=== PATIENT | female | born 1945 | race Caucasian/White ===

== ENCOUNTER → 2018-01-05 | Outpatient (CLI) | payer MEDICARE, OTHER ==
[~2018-01-05] MED LIST: ACCUNEB SO1.25 MG/1 INH; AZITHROMYCIN 2250 MG PO; CARVEDILOL12.5 MG PO; COZAAR 50 MG TA50 M1 PO; HYDROCHLOROTHIA25 M2 PO; LASIX 20 MG TAB20 MG PO; LASIX 40 MG TAB40 M2 PO; MEDROLDOSEPACK PO; METFORMIN HCL500 MG PO; PRAVACHOL20 MG PO; TOPROL XL100 MG PO
== END ==
LOC: M.RAD 09:44
DX: M54.9 Dorsalgia, unspecified (principal); M25.551 Pain in right hip; M25.552 Pain in left hip; I73.9 Peripheral vascular disease, unspecified

== ENCOUNTER → 2018-01-07 | Outpatient (CLI) | payer MEDICARE, OTHER | LOC: M.MRI 16:33 | DX: M25.551 Pain in right hip (principal); M54.5 Low back pain ==

== ENCOUNTER → 2018-01-22 | Outpatient (CLI) | payer MEDICARE, OTHER | LOC: M.MRI 15:45 | DX: M47.896 Other spondylosis, lumbar region (principal) ==

== ENCOUNTER 2018-06-14 16:58 | Inpatient (IN) | payer MEDICARE, OTHER ==
[~2018-06-14] VITALS: Ht 167.6 cm; Wt 120.2 kg
[2018-06-14 17:00] VITALS: BP 148/90
[2018-06-14] MEDS ORDERED: METFORMIN HCL500 MG PO (17:05)
[2018-06-14] MEDS ORDERED: HYDROCHLOROTHIA25 M2 PO (17:05)
[2018-06-14] MEDS ORDERED: COZAAR 50 MG TA50 M1 PO (17:05)
[2018-06-14] MEDS ORDERED: MEDROLDOSEPACK PO (17:06)
[2018-06-14] MEDS ORDERED: ACCUNEB SO1.25 MG/1 INH (17:06)
--- NOTE | 2018-06-14 17:53 | NUR ---
PT REQUESTED A MASK FOR HER O2 INSTEAD OF NC. THIS EAR PULL MACHINE OPERATOR EXPLAINED TO PT THAT DURING VITALS PT'S OXYGEN LEVEL WAS 97% AND THAT A MASK WOULD BE TOO MUCH O2 AT THIS TIME. PT STATED THAT THE NC BOTHERED HER NOSE. THIS RN TOLD HER SHE WAS WELCOME TO REMOVE IT
[2018-06-14 18:33] LABS: HEMATOCRIT 34.5 % (37.0-47.0); HEMOGLOBIN 10.9 gm/dL (12.0-15.0); MCH 22.5 pg (26.0-34.0); MCHC 31.6 g/dL (28.0-37.0); MCV 71.4 fL (80.0-100.0); MPV 7.4 fl. (7.2-11.1); NUCLEATED RBCS 0 /100WBC; PLATELET COUNT* 318 thou/uL (150-400); RBC 4.84 mil/uL (4.20-5.00); RDW-CV 18.5 % (10.5-14.5); WBC 13.2 thou/uL (4.0-11.0)
[2018-06-14 18:43] LABS: ANION GAP 7 mmol/L (7-16); BUN 21 mg/dL (7-18); CALCIUM 9.2 mg/dL (8.5-10.1); CHLORIDE 95 mmol/L (98-107); CO2 29 mmol/L (21-32); CREATININE 1.1 mg/dL (0.6-1.3); GLUCOSE 157 mg/dL (70-99); POTASSIUM 4.5 mmol/L (3.5-5.1); SODIUM 131 mmol/L (136-145)
[2018-06-14 18:59] LABS: ALBUMIN 3.1 g/dL (3.4-5.0); ALKALINE PHOSPHATASE 81 U/L (46-116); NT-PRO BRAIN NAT PEPTIDE 5831 pg/mL (<300); SGOT 13 U/L (15-37); SGPT 26 U/L (30-65); TOTAL BILIRUBIN 0.3 mg/dL (<0.1-1.0); TOTAL PROTEIN 7.3 g/dL (6.4-8.2); TROPONIN-I LEVEL <0.06 ng/mL (<0.06)
[2018-06-14 19:00] LABS: APTT 25.4 Seconds (25.0-31.3); PROTIME 10.4 Seconds (9.20-11.50)
[2018-06-14 19:27] LABS: ABSOLUTE LYMPHOCYTES 1.8 thou/uL (0.8-5.3); ABSOLUTE MONOCYTES 0.3 thou/uL (0.0-1.2); ABSOLUTE NEUTROPHILS 11.1 thou/uL (1.6-8.1); ANISOCYTOSIS 1+; HYPOCHROMASIA 1+
[2018-06-14 19:28] LABS: MICROCYTES 2+; PLATELET ESTIMATE ADEQUATE
[2018-06-14 20:12] LABS: URINE BILIRUBIN NEGATIVE (Negative); URINE BLOOD TRACE (Negative); URINE CLARITY CLEAR; URINE COLOR YELLOW; URINE GLUCOSE-RANDOM NEGATIVE (Negative); URINE KETONES NEGATIVE (Negative); URINE LEUKOCYTES-REFLEX NEGATIVE (Negative); URINE NITRITE-REFLEX NEGATIVE (Negative); URINE PROTEIN 1+ (Negative); URINE UROBILINOGEN 0.2 E.U./dl (0.2-1.0)
[2018-06-14 20:30] LABS: CASTS None Seen /LPF (None Seen); MUCUS None Seen strn/LPF (None Seen); SQUAMOUS 4-10 Moderate /LPF (0-3); URINE RBC 0-2 Rare /HPF (0-2); URINE WBC-REFLEX 0-5 Rare /HPF (0-5)
--- NOTE | 2018-06-14 20:30 | NUR ---
BEDSIDE COMMODE PLACED IN ROOM TO ACCOMIDATE PT
[2018-06-14 20:31] LABS: BACTERIA-REFLEX 1-9 Few /HPF (None Seen); CRYSTALS None Seen /LPF (None Seen)
[2018-06-14 22:00] VITALS: BP 120/76
--- NOTE | 2018-06-14 22:00 | NUR ---
REPORT TO TONYA
[2018-06-14 22:15] VITALS: BP 123/71
[2018-06-14] MEDS ORDERED: TOPROL XL100 MG PO (22:37)
[2018-06-14] MEDS ORDERED: PRAVACHOL20 MG PO (22:37)
[2018-06-15] VITALS: BP 136/77
[2018-06-15 04:00] VITALS: BP 126/67
--- NOTE | 2018-06-15 04:33 | NUR ---
PATIENT RECEIVED FROM ER AT 2215 WITH C/O SHORTNESS OF AIR AND LOWER EXTREMITY SWELLING. PATIENT ON 2L O2 NC WITH SATS >92%. SUTURE GAUGER TRACING ST. PATIENT DENIES CHEST PAIN AND DISCOMFORT, BUT DID HAVE C/O HEADACHE RELIEVED WITH ONE DOSE OF TYLENOL AND QUIET/DARK ENVIRONMENT. PATIENT INSTRUCTED TO CALL FOR ASSISTANCE WITH BATHROOM, PATIENT HAS PERSONAL CANE AT BEDSIDE. GOAL IS TO RELIEVE SHORTNESS OF AIR AND SWELLING. CALL LIGHT WITHIN REACH
[2018-06-15 09:00] VITALS: BP 147/86
--- NOTE | 2018-06-15 10:47 | NUR ---
ASSUMED PT CARE AT 0700 PT IS ALERT AND ORIENTED X 4 PT DENIES PAIN C/O SOA APPLIED 2L/NC WHICH HELPED PT, DAUGHTER ASKED ABOUT BREATHING TREATMENTS THIS NURSE PAGED PHYSICIAN WHO ORDERED SCHEDULED BREATHING TREATMENTS, PT IS ST ON THE MONITOR PHYSICIAN ORDERED LASIX IV WHICH THIS NURSE GAVE, PT IS UP WITH SBA PT IS A FALL RISK PT USES CANE BED ALARM IS ON, CARDIOLOGY SAW PT ORDERED DIET, WILL CONTINUE TO MONITOR
--- NOTE | 2018-06-15 11:07 | NUR ---
Nutrition: Pt seen for consult - "other." Pt in with new CHF. H/o DM, HTN. 2gm Na diet ordered. Pt denied any questions. She had some complaints about ER (which RD will report Cipher), but no nutrition concerns or questions at [facility]. Mely did enter room during our visit; RD left to let Dr visit with pt. Pt does have BMI >40. No other nutrition interventions at this time. Please consult of nutrition education is warranted before discharge. Low risk.
[2018-06-15 12:00] VITALS: BP 170/84
[2018-06-15 12:04] LABS: CALCIUM 8.9 mg/dL (8.5-10.1); CREATININE 1.2 mg/dL (0.6-1.3); POTASSIUM 4.2 mmol/L (3.5-5.1)
--- NOTE | 2018-06-15 13:03 | EKG ---
[place] [address] ELECTROCARDIOGRAM REPORT Name: SYLVAIN CHILDRESS Room: [address] ADM IN M.R.#: [id number] Admission: 06/14/18 Attend Phys: Solo Seaman Discharge: Date of : 49 Report #: [id number] THIS REPORT FOR: //name// [facility] ED Test Date: 2018-06-14 Test Time: 18:09:57 Pat Name: SYLVAIN CHILDRESS Department: Room: [address] Gender: F Physician Executive: BARBARA : 1945 Requested By: Dianna Harrington Order Number: [id number] Katarina MD: Manuel Blood Measurements Intervals [place] Rate: 111 P: 90 OH: 196 QRS: -33 QRSD: 98 T: 87 QT: 325 QTc: 442 Interpretive Statements Sinus tachycardia Probable left atrial enlargement Inferior infarct, old Anterior infarct, old Lateral leads are also involved Baseline wander in lead(s) V4,V5 Compared to ECG 04/14/2007 16:02:18 Myocardial infarct finding now present Sinus rhythm no longer present First degree AV block no longer present Electronically Signed On 06-15-2018 13:03:27 CDT by Manuel Blood [email or web address] <ELECTRONICALLY SIGNED> By: Manuel Blood MD, [facility] 06/15/18 1303 08 180 Manuel Blood MD, [facility] /EPI
--- NOTE | 2018-06-15 15:12 | NUR ---
Pt is A&O. Resides at home with her . Normally active and independent. Pt has a cane that she uses for mobility. No hx of HH or SNF. Supportive family that is involved in POC. Goal is to return home at dc, no needs anticipated. Following.
--- NOTE | 2018-06-15 15:16 | 2DMMODE ---
[place] [address] 2 D/M-MODE ECHOCARDIOGRAM Name: SYLVAIN CHILDRESS Room: [address] IN [facility]#: [id number] Admission: 06/14/18 Attend Phys: Dianna Harrington Discharge: Date of : 49 Date of Service: 06/15/18 1515 Report #: [id number] THIS REPORT FOR: //name// APPROVED REPORT Study performed: 06/15/2018 13:30:31 EXAM: Comprehensive 2D, Doppler, and color-flow Echocardiogram Patient Location: In-Patient Room #: [facility] Status: routine BSA: 2.25 HR: 104 bpm BP: 170/84 mmHg Rhythm: NSR Other Information Study Quality: Good Indications Dyspnea 2D Dimensions IVSd: 11.53 (7-11mm) LVOT Diam: 21.88 (18-24mm) LVDd: 48.87 mm PWd: 11.25 (7-11mm) Ascending Ao: 27.94 (22-36mm) LVDs: 37.80 (25-40mm) Aortic Root: 32.72 mm Volumes Left Atrial Volume (Systole) LA ESV Index: 28.50 mL/m2 Aortic Valve AoV Peak Blaise.: 1.78 m/s AO Peak Gr.: 12.65 mmHg LVOT Max P.02 mmHg AO Mean Gr.: 7.93 mmHg LVOT Mean P.22 mmHg LVOT Max V: 1.00 m/s AO V2 VTI: 27.58 cm LVOT Mean V: 0.70 m/s RACHID (VTI): 2.16 cm2 LVOT V1 VTI: 15.87 cm TDI Lateral E' Blaise.: 0.06 m/[place] [address] 2 D/M-MODE ECHOCARDIOGRAM Name: SYLVAIN CIHLDRESS Room: [address] IN M.R.#: [id number] Admission: 06/14/18 Attend Phys: Dianna Harrington Discharge: Date of : 49 Date of Service: 06/15/18 1515 Report #: [id number] PV Peak Blaise.: 1.08 m/s PV Peak Gr.: 4.71 mmHg Left Ventricle Left ventricle is borderline dilated. There is global hypokinesis of the left ventricle. There is normal left ventricular wall thickness. Left ventricular systolic function is normal. The left ventricular ejection fraction is within the normal range. LVEF is 40%. The left ventricular diastolic function is normal. Right Ventricle The right ventricle is normal size. The right ventricular systolic function is normal. Atria The left atrium size is normal. The right atrium size is normal. Aortic Valve The aortic valve is normal in structure. Aortic valve is not well visualized. No aortic regurgitation is present. There is no aortic valvular stenosis. Mitral Valve The mitral valve is normal in structure. Trace mitral regurgitation. No evidence of mitral valve stenosis. Tricuspid Valve The tricuspid valve is normal in structure. There is no tricuspid valve regurgitation noted. Pulmonic Valve The pulmonary valve is normal in structure. There is no pulmonic valvular regurgitation. Great Vessels The aortic root is normal in size. IVC is normal in size and collapses >50% with inspiration. Pericardium There is no pericardial effusion. <Conclusion> LVEF is 40%. Left ventricle is borderline dilated. There is global hypokinesis of the left ventricle. There is no aortic [place] [address] 2 D/M-MODE ECHOCARDIOGRAM Name: SYLVAIN CHILDRESS Room: [address] IN .R.#: [id number] Admission: 06/14/18 Attend Phys: Dianna Harrington Discharge: Date of : 49 Date of Service: 06/15/18 1515 Report #: [id number] No aortic regurgitation is present. Trace mitral regurgitation. <ELECTRONICALLY SIGNED> By: Manuel Blood MD, FACC 06/15/18 1515 1515 1515 Manuel Blood MD, FACC /INF
[2018-06-15 16:05] VITALS: BP 171/76
[2018-06-15 20:00] VITALS: BP 104/63
[2018-06-16] VITALS (11 sets, daily range): BP systolic 101–138; BP diastolic 49–93
--- NOTE | 2018-06-16 05:01 | NUR ---
ASSUMED CARE OF PT AFTER REPORT AT 1930. PT A&OX4. VSS. PHYSICAL ASSESSMENT COMPLTED AND CHARTED. PT ON O2 AT 2L WITH 96% O2 SAT. PT TRACING ST/SR PVC ON TELE. PT UP STANDBY ASSIST TO TOILET. PT C/O OF HEADACHE WITH PAIN SCALE OF 8/10-PAIN MEDS GIVEN PER MAR WITH PARTIAL RELIEF.REMINDED PT REGARDING 2L FLUID RESTRICTION. INSTRUCTED ON NPO POST MIDNIGHT FOR CARDIAC CATH TODAY. COMMUNICATES UNDERSTANDING. HOURLY ROUNDING OBSERVED. CALL LIGHT WITHIN REACH. BED IN LOW POSITION.
[2018-06-16 05:10] LABS: HEMATOCRIT 34.5 % (37.0-47.0); HEMOGLOBIN 10.7 gm/dL (12.0-15.0); MCH 22.9 pg (26.0-34.0); MCV 73.9 fL (80.0-100.0); MPV 7.9 fl. (7.2-11.1); RBC 4.67 mil/uL (4.20-5.00); RDW-CV 18.5 % (10.5-14.5); WBC 12.2 thou/uL (4.0-11.0)
[2018-06-16 05:46] LABS: CALCIUM 8.6 mg/dL (8.5-10.1); CREATININE 1.3 mg/dL (0.6-1.3); MAGNESIUM 1.9 mg/dL (1.8-2.4); POTASSIUM 4.1 mmol/L (3.5-5.1)
--- NOTE | 2018-06-16 13:14 | NUR ---
ASSUMED PT CARE AT 0700 PT IS ALERT AND ORIENTED X 4 PT STATES HAS BACK PAIN THAT IS CHRONIC PT HAD SURGERY ON BACK AND SHOULDER, PT IS UP AD SAVANA PT IS NOT A FALL RISK, PT RECEIVED BOLUS OF FLUIDS AND VALIUM SCHEDULED, PT CAN HAVE ICE CHIPS PER CARDIOLOGY PT IS NPO AWAITING CARDIAC CATH PROCEDURE, PT IS ST PVC ON THE MONITOR, AROUND NOON TECH NOTIFIED THIS NURSE PT BLOOD PRESSURE IS LOW THIS NURSE RECHECKED AND PT BLOOD PRESSURE IS APPROPRIATE FOR PT, PT STARTED NEW MEDICATION CARVEDILOL THIS AM PT IS TOLERATING, WILL CONTINUE TO MONITOR
[2018-06-17] VITALS: BP 111/71
[2018-06-17 04:00] VITALS: BP 100/58
[2018-06-17 04:51] LABS: HEMATOCRIT 34.5 % (37.0-47.0); HEMOGLOBIN 10.5 gm/dL (12.0-15.0); MCH 22.3 pg (26.0-34.0); MCHC 30.5 g/dL (28.0-37.0); MCV 73.1 fL (80.0-100.0); MPV 7.8 fl. (7.2-11.1); RBC 4.73 mil/uL (4.20-5.00); RDW-CV 18.2 % (10.5-14.5); WBC 11.3 thou/uL (4.0-11.0)
[2018-06-17 04:57] LABS: CALCIUM 9.1 mg/dL (8.5-10.1); CREATININE 1.2 mg/dL (0.6-1.3); POTASSIUM 4.2 mmol/L (3.5-5.1)
[2018-06-17 04:58] LABS: MAGNESIUM 2.2 mg/dL (1.8-2.4)
--- NOTE | 2018-06-17 05:46 | NUR ---
ASSUMED CARE OF PT AFTER REPORT AT 1930. PT A&OX4. VSS. PHYSICAL ASSESSMENT COMPLETED AND CHARTED. PT ON RA WITH 92% O2 SAT. PT TRACING SR 1ST DEG/PVC ON TELE. PT UP STANDBY ASSIST TO TOILET. PT COMPLAINED OF HEADACHE WITH PAIN SCALE OF 8/10-PAIN MEDS GIVEN PER MAR WITH PARTIAL RELIEF. RADIAL ARTERY COMPRESSION DEVICE REMOVED AT 2100 AFTER RELEASING 2 MLS OF AIR Q30.COVERED WITH BANDAID.NO HEMATOMA PRESENT.PULSES ADEQUATE. HOURLY ROUNDING OBSERVED. CALL LIGHT WITHIN REACH.
[2018-06-17 09:00] VITALS: BP 154/56
[2018-06-17] MEDS ORDERED: LASIX 20 MG TAB20 MG PO (10:05)
[2018-06-17] MEDS ORDERED: CARVEDILOL12.5 MG PO (10:05)
[2018-06-17] MEDS ORDERED: AZITHROMYCIN 2250 MG PO (10:05)
--- NOTE | 2018-06-17 10:17 | NUR ---
ASSSUMED PT CARE AT 0700 PT IS ALERT AND ORIENTED X 4 PT DENIES PAIN OR SOA ON RA, PT IS UP AD SAVANA PT IS CLEARED BY CARDIOLOGY FOR DISCHARGE, HOSPITALIST CLEARED PT FOR DISCHARGE, PT HAS APPOINTMENT WITHIN 7 DAYS FOR FOLLOW UP AND PT IS ON BETA JAYLA PER PROTOCOL, PT IS SR PVC ON THE MONITOR, WILL CONTINUE TO MONITOR
[2018-06-17] MEDS ORDERED: LASIX 40 MG TAB40 M2 PO (11:14)
[2018-06-17 12:02] VITALS: BP 193/59
--- NOTE | 2018-06-17 18:06 | CARD ---
[address] [address] CARDIAC CATH REPORT Name: SYLVAIN CHILDERSS Room: [address] IN ..#: [id number] Admission: 06/14/18 Attend Phys: Solo Seaman Discharge: 06/17/18 Date of : 49 Report #: [id number] THIS REPORT FOR: //name// APPROVED REPORT Study performed: 06/16/2018 14:31:35 Patient Details Patient Status: In-Patient Room #: 214 The patient is a 73 year-old female Event Personnel Renard Parra Bus Boy, Tonya Apodaca RN Cardiology Specialist, Laurie Beverly Monitor, Eliseo Zaragoza Scrub Procedures Performed Art Access - R radial artery , Left Heart Catheterization, Selective Right and Left Coronary Angiography Indication Chest pain Risk Factors Hypertension Procedure Narrative The patient was brought electively to the Cardiac Catheterization Laboratory and was prepped and draped in a sterile manner. The right wrist was infiltrated with 2% Lidocaine subcutaneous anesthesia. A Slender Glidesheath sheath was inserted into the right radial artery. Coronary angiography was performed using coronary diagnostic catheters. The right coronary system was accessed and visualized with a 6fr JR 4 catheter. The left coronary system was accessed and visualized with a 6fr JL 4 catheter. The left ventricle was accessed and visualized with a 6fr Ang Pigtail catheter. Left ventricular/Aortic Valve gradient assessed via catheter pullback. The patient tolerated the procedure well and there were no complications associated with the procedure. Intraoperative Conscious Sedation Sedation start time: 15:11 Case end Time: 15:45 Fentanyl 25 mcg Fluoro Time: 6.9 [place] [address] CARDIAC CATH REPORT Name: SYLVAIN CHILDRESS Room: [address]#: [id number] Admission: 06/14/18 Attend Phys: Solo Seaman Discharge: 06/17/18 Date of : 49 Report #: [id number] Dose: DAP 89902 cGycm2 1088.80 mGy Contrast Type and Amount: Visipaque 100 ml Diagnostic Cath Left Main 0% narrowing LAD 50% mid LAD narrowing Circumflex 60% narrowing of the midportion of the posterior division with 50% mid first marginal narrowing Right Coronary Dominant vessel with 40% mid vessel narrowing Left Ventriculography Left Ventriculography was not performed. Hemodynamics The aortic pressure is 126/59 mmHg with a mean of mmHg. The left ventricular pressure is 140/8 mmHg with a mean of mmHg. The left ventricular end diastolic pressure is 14 mmHg. There was no gradient across the aortic valve upon pullback. Conclusion #1 moderate coronary artery disease characterized by the following: A 50% mid LAD narrowing B 50% narrowing of the midportion of the first marginal branch of the circumflex with 60% mid circumflex narrowing in the posterior division C 40% narrowing of the midportion of the dominant right coronary artery #2 mild elevation of left ventricular end-diastolic pressure at rest Recommendations Medical Therapy Diagnostic Cath Approved by: Renard Parra MD Date/Time: 06/17/2018 18:05:04 <ELECTRONICALLY SIGNED> By: Renard Parra MD, [facility] 06/17/18 180 04 04Renard Parra MD, [facility] /INF
--- NOTE | 2018-07-03 12:09 | CON ---
[address] [address] CONSULTATION Name: SYLVAIN CHILDRESS Room: [address] IN M.R.#: [id number] Admission: 06/14/18 Attend Phys: Solo Seaman Discharge: 06/17/18 Date of : 49 Report #: [id number] THIS REPORT FOR: //name// CC: Dianna Jenkins DATE OF SERVICE: 06/15/2018 PRIMARY CARE PHYSICIAN: Jacques Jenkins DO CHIEF COMPLAINT: Shortness of breath. HISTORY OF PRESENT ILLNESS: The patient is a 73-year-old female who presented to the emergency department with increasing shortness of breath over the last several days, perhaps 2 weeks. She has been having increasing leg swelling. Her chest x-ray revealed bilateral pleural effusions and her BNP was greater than 5000. She denies chest pain or pressure, the shortness of breath has occurred with physical activity and it is associated with nighttime orthopnea and PND. She has no documented history of heart disease; however, her ECG demonstrates Q-waves across the anterior precordial leads. She has a longstanding history of smoking and she thought maybe her shortness of breath was attributed to this. She also has high blood pressure, but this had been stable on medical therapy. She was evaluated with a CT scan of the chest with contrast overnight to rule out pulmonary embolus, which was negative. However, there was some interstitial prominence and a calcified granuloma in the right mid lung. PAST MEDICAL HISTORY: Significant for the following, she has a longstanding history of high blood pressure. She has no documented history of heart disease. She is a former smoker. She smoked for over 20 years. She is diabetic, type 2. PAST SURGICAL HISTORY: She has no prior recent surgeries. She had a hip surgery previously. ALLERGIES: To CODEINE. SOCIAL HISTORY: She is . HOME MEDICATIONS: Include Pravachol 20 mg daily, metoprolol succinate 100 mg p.o. b.i.d., metformin 1000 mg p.o. b.i.d., HCTZ 25 mg losartan 50 mg daily [place] [address] CONSULTATION Name: SYLVAIN CHILDRESS Room: [address]#: [id number] Admission: 06/14/18 Attend Phys: Solo Seaman Discharge: 06/17/18 Date of : 49 Report #: [id number] REVIEW OF SYSTEMS: GASTROINTESTINAL: No nausea or vomiting. Positive abdominal bloating with no constipation, no diarrhea, no hematemesis or melena. MUSCULOSKELETAL: Positive bilateral lower extremity edema, left slightly greater than right. CARDIOVASCULAR: No chest pain. Positive dyspnea with exertion, positive orthopnea, positive PND, no palpitations. NEUROLOGIC: No history of slurred speech, numbness, weakness or visual changes. ENDOCRINE: Positive diabetes. RENAL: No history of kidney failure. ALLERGIES: As noted above. PHYSICAL EXAMINATION: VITAL SIGNS: Blood pressure is 126/67, pulse is 104 and in a sinus rhythm, blood pressure is 126/67. GENERAL: This is a pleasant elderly female. She is sitting up in a chair. She is on oxygen 2 liters, but conversant and comfortable talking. HEENT: There is no facial asymmetry. NECK: Supple. No jugular venous distention. Carotids upstrokes are normal. CARDIOVASCULAR: Regular, sinus tachycardia. There is faint S3. There is faint systolic apical murmur. LUNGS: Diminished breath sounds with basilar rales. ABDOMEN: Soft, nontender, nondistended. There is 1-2+ pretibial edema bilateral. NEUROLOGIC: There are no focal deficits. Electrocardiogram shows a sinus rhythm with Q-waves across the anterior precordial leads V1 through V4. Delayed R-wave progression, there are also Q-waves in 3 and aVF and a mild IVCD. LAB DATA: Her hemoglobin is 10.9, white blood cell count is 13.2, platelet count is 318,000. Sodium is 131, potassium is 4.5, chloride is 95, BUN is 21, creatinine is 1.1, and glucose 212. Troponin I is 0.06. BNP is 5831. IMPRESSION: 1. Acute systolic congestive heart failure. She has been given IV Lasix with some improvement of her symptoms. Her chest x-ray did not show any consolidating infiltrates, so it appears to be more related to congestive heart failure, especially given in light of her elevated BNP level and clinical presentation with edema and weight gain. 2. Coronary artery disease. Her ECG is concerning for coronary artery disease and her symptoms could be account maintenance representative of an unstable angina type etiology, so after discussing risks and benefits, I think it is not safe to proceed with a stress test in this particular patient, I would recommend direct evaluation with a cardiac catheterization, the risks and benefits of this approach were [address] [place] [address] CONSULTATION Name: SYLVAIN CHILDRESS Room: [address] IN M.R.#: [id number] Admission: 06/14/18 Attend Phys: Solo Seaman Discharge: 06/17/18 Date of : 49 Report #: [id number] described to the patient in lay terms. The patient elects to proceed. 3. Hypertension. We will continue with her current medical therapy including beta chikis and ARB. 4. Hyperlipidemia. Continue with atorvastatin. We will check her lipids and treat accordingly. 5. Elevated white blood cell count. She has been on steroids as an outpatient, I suspect this may be part of the elevation in her white blood cell count. <ELECTRONICALLY SIGNED> By: Manuel Blood MD, FACC 07/03/18 1209 1054 1314Manuel Blood MD, FACC /nt
== END 2018-06-17 11:50 | disposition home or self-care (01) | DRG 286 ==
LOC: M.ERS 16:58 → M.2W 21:14 → M.TBA-ER 21:14 → M.2W 22:02
PROVIDERS: Internal Medicine; Internal Medicine Cardiovascular Disease; Nurse Practitioner Family; ADMIT Internal Medicine
PROC: 4A023N7 Measurement of Cardiac Sampling and Pressure, Left Heart, Percutaneous Approach (ICD-10-PCS; principal; 2018-06-16)
PROC: B2111ZZ Fluoroscopy of Multiple Coronary Arteries using Low Osmolar Contrast (ICD-10-PCS; 2018-06-16)
DX: I11.0 Hypertensive heart disease with heart failure (principal); J18.9 Pneumonia, unspecified organism; Z68.41 Body mass index [BMI] 40.0-44.9, adult; J84.89 Other specified interstitial pulmonary diseases; Z96.1 Presence of intraocular lens; E11.9 Type 2 diabetes mellitus without complications; E66.01 Morbid (severe) obesity due to excess calories; J06.9 Acute upper respiratory infection, unspecified; N28.1 Cyst of kidney, acquired; I50.41 Acute combined systolic (congestive) and diastolic (congestive) heart failure; E78.5 Hyperlipidemia, unspecified; Z88.8 Allergy status to other drugs, medicaments and biological substances; Z79.899 Other long term (current) drug therapy; Z90.710 Acquired absence of both cervix and uterus; Z98.42 Cataract extraction status, left eye; Z98.41 Cataract extraction status, right eye; Z87.891 Personal history of nicotine dependence

== ENCOUNTER 2018-12-27 11:27 | Inpatient (IN) | payer MEDICARE, OTHER ==
[~2018-12-27] VITALS: Ht 167.6 cm; Wt 119.7 kg
--- NOTE | ~2018-12-27 | CON ---
[address] [address] CONSULTATION Name: SYLVAIN CHILDRESS Room: [address] IN .R.#: [id number] Admission: 12/27/18 Attend Phys: Mariah Van MD Discharge: Date of : 49 Report #: [id number] THIS REPORT FOR: //name// CC: Jacques Jenkins DO Mariah Van DICTATED BY: Nalini Hanks [facility] DATE OF SERVICE: 12/28/2018 Please note at the time of this dictation, the patient was seen and physically examined by myself. REASON FOR CONSULTATION: Acute anemia and melenic stool. HISTORY OF PRESENT ILLNESS: This is a 73-year-old female who originally went to her doctor's office yesterday for having some increased shortness of air; however, she denied any fever, cough, chest pain, abdominal pain or any other type of symptoms. The patient states she had been noticing worsening of this and when they went to check her oxygen level, it was difficult to get, so they did a stat hemoglobin on her and told her that it was 5.8 and she needed to go to the Emergency Room. The patient states that approximately four months ago, she noticed some dark stools once in a while, but was not concerned; however, over the course of the time period, she states that the stools have become darker more frequent on a daily basis and multiples in one day that is very tarry or pasty in consistency. The patient states she does have a history of a gastric ulcer many years ago. The patient has had EGD and colonoscopy done at [facility]. Last colon was about 3 years ago and last EGD was 15-20 years ago and that is when she was told that she had a gastric ulcer. She does not take anything for acid reflux or no PPIs at this time. She denies any acid reflux and she denies taking any NSAIDs as well. ALLERGIES: CODEINE AND HYDROCODONE. MEDICATIONS: From home include metformin, pravastatin, Lasix, albuterol and Cozaar. PAST MEDICAL HISTORY: Morbid obesity, congestive heart failure, noninsulin dependent diabetic and hypertension. PAST SURGICAL HISTORY: Bilateral cataracts, hysterectomy, carpal tunnel, foot surgery, rotator cuff, left and right knee arthroscopic surgery. FAMILY HISTORY: Maternal side breast cancer [place] [address] CONSULTATION Name: SYLVAIN CHILDRESS Room: [address]#: [id number] Admission: 12/27/18 Attend Phys: Mariah Van MD Discharge: Date of : 49 Report #: [id number] SOCIAL HISTORY: Denies any tobacco, alcohol or illegal drug use. REVIEW OF SYSTEMS: Twelve-point review of systems is essentially negative except what is mentioned in the HPI. PHYSICAL EXAMINATION: VITAL SIGNS: Temperature 36.6, pulse 94, respirations 16, blood pressure 145/36. HEART: Regular rate and rhythm. LUNGS: Clear. ABDOMEN: Soft, positive bowel sounds in all four quadrants with some slight epigastric tenderness noted to palpation. LABORATORY DATA: Hemoglobin on arrival was 6.8. She has gotten two units of blood. She went up to 8.8 and down to 7.8, white count is 11.8, MCV is 64, platelets are 440. PT is 10 and INR is 1.1, GFR is 49, BUN is 16, creatinine is 1.1. IMPRESSION: 1. Gastrointestinal bleed. 2. Melenic stool. 3. Epigastric pain. 4. Acute anemia. 5. History of gastric ulcer. 6. Chronic kidney disease. 7. Family history of breast and cervical cancer. PLAN: 1. EGD today with Dr. Hernandez. 2. Continue her Protonix. 3. Obtain her records from [facility]. 4. Further recommendations to be made once the procedure has been performed. Thank you for allowing us to participate in this patient's care. Please do not hesitate to call with any questions in regard to this consult. By: 0830 [id number] Hernandez MD /erin
--- NOTE | ~2018-12-27 | PROC ---
[facility] [address] [place] [address] PROCEDURE REPORT Name: SYLVAIN CHILDRESS Room: [address] IN .R.#: [id number] Admission: 12/27/18 Attend Phys: Mariah Van MD Discharge: 12/29/18 Date of : 49 Report #: [id number] THIS REPORT FOR: //name// For GI report, please see the Provation report in Perceptive 7 content. By: [facility] Records Staff LEMUEL /JEAN MARIE
[2018-12-27 11:33] VITALS: BP 159/61
[2018-12-27 12:13] LABS: BE 2.1 mmol/L (-2 to +3); PCO2 41.4 mmHg (35.0-45.0); pH 7.426 (7.340-7.450)
--- NOTE | 2018-12-27 12:23 | NUR ---
INFUSION CONTACTED FOR IV PLACEMENT
[2018-12-27 12:31] LABS: URINE BILIRUBIN NEGATIVE (Negative); URINE BLOOD TRACE (Negative); URINE CLARITY CLEAR; URINE COLOR YELLOW; URINE GLUCOSE-RANDOM NEGATIVE (Negative); URINE KETONES NEGATIVE (Negative); URINE LEUKOCYTES-REFLEX NEGATIVE (Negative); URINE NITRITE-REFLEX NEGATIVE (Negative); URINE PROTEIN NEGATIVE (Negative); URINE UROBILINOGEN 0.2 E.U./dl (0.2-1.0)
[2018-12-27 12:37] LABS: ABSOLUTE BASOPHILS 0.1 thou/uL (0.0-0.2); ABSOLUTE EOSINOPHILS 0.3 thou/uL (0.0-0.7); ABSOLUTE LYMPHOCYTES 1.5 thou/uL (0.8-5.3); ABSOLUTE MONOCYTES 1.3 thou/uL (0.0-1.2); ABSOLUTE NEUTROPHILS 10.4 thou/uL (1.6-8.1); BASOPHILS 0.5 %; EOSINOPHILS 1.9 %; HEMATOCRIT 23.2 % (37.0-47.0); LYMPHOCYTES 11.2 %; MCH 17.8 pg (26.0-34.0); MCHC 29.4 g/dL (28.0-37.0); MCV 60.6 fL (80.0-100.0); MONOCYTES 9.7 %; MPV 7.2 fl. (7.2-11.1); NUCLEATED RBCS 0 /100WBC; PLATELET COUNT* 527 thou/uL (150-400); POLYS 76.7 %; RBC 3.83 mil/uL (4.20-5.00); RDW-CV 19.8 % (10.5-14.5); WBC 13.6 thou/uL (4.0-11.0)
[2018-12-27 12:38] LABS: HEMOGLOBIN 6.8 gm/dL (12.0-15.0)
--- NOTE | 2018-12-27 12:54 | NUR ---
INFUSION PRESENT FOR IV PLACEMENT
[2018-12-27 12:55] LABS: ANION GAP 9 mmol/L (7-16); BUN 22 mg/dL (7-18); CALCIUM 9.2 mg/dL (8.5-10.1); CHLORIDE 95 mmol/L (98-107); CO2 30 mmol/L (21-32); CREATININE 1.2 mg/dL (0.6-1.3); GLUCOSE 190 mg/dL (70-99); POTASSIUM 4.1 mmol/L (3.5-5.1); SODIUM 134 mmol/L (136-145); TROPONIN-I LEVEL <0.06 ng/mL (<0.06)
[2018-12-27 12:56] LABS: ALBUMIN 2.8 g/dL (3.4-5.0); ALKALINE PHOSPHATASE 109 U/L (46-116); NT-PRO BRAIN NAT PEPTIDE 1486 pg/mL (<300); SGOT 11 U/L (15-37); SGPT 17 U/L (30-65); TOTAL BILIRUBIN 0.2 mg/dL (<0.1-1.0); TOTAL PROTEIN 7.7 g/dL (6.4-8.2)
[2018-12-27 13:10] LABS: HYPOCHROMASIA 2+; PLATELET ESTIMATE INCREASED
[2018-12-27 13:11] LABS: MICROCYTES 2+; POLYCHROMASIA 1+
[2018-12-27 13:12] LABS: TARGET CELLS 1+
[2018-12-27 13:13] LABS: ANISOCYTOSIS 2+; POIKILOCYTOSIS 1+
--- NOTE | 2018-12-27 13:59 | NUR ---
1ST UNIT PRBC TRANSFUSION STARTED ORDERED VIA LT AC IV.
--- NOTE | 2018-12-27 15:40 | NUR ---
PT SAT UP ON EDGE OF BED, BP DROPPED TO 115/27, PROVIDER AWARE. PT STATES NO COMPLAINTS, DENIES DIZZINES. RECHECKED AND 127/41. PT STATES BP HAS BEEN LOW AT HOME SINCE TAKING COREG.
--- NOTE | 2018-12-27 16:59 | NUR ---
PT WAS OFFERED A REGULAR HOSPITAL BED INSTEAD OF E.D. STRETCHER. PT REFUSED. STATES SHE HAS "ALREADY BEEN HERE FOR SIX HOURS WITHOUT A BED, WHAT'S THE USE NOW? NO THANK YOU". AWAITING ROOM ASSIGNMENT FOR ADMISSION.
[2018-12-27 18:32] LABS: % SATURATION 3 % (20-39); IRON 10 ug/dL (50-175)
[2018-12-27 19:52] LABS: HEMATOCRIT 28.5 % (37.0-47.0); HEMOGLOBIN 8.8 gm/dL (12.0-15.0); MCH 19.8 pg (26.0-34.0); MCHC 30.8 g/dL (28.0-37.0); MCV 64.3 fL (80.0-100.0); MPV 7.1 fl. (7.2-11.1); RBC 4.43 mil/uL (4.20-5.00); RDW-CV 23.1 % (10.5-14.5); WBC 14.7 thou/uL (4.0-11.0)
[2018-12-27 21:47] VITALS: BP 170/67
[2018-12-27 22:00] VITALS: BP 167/56
--- NOTE | 2018-12-27 22:00 | NUR ---
RECEIVED REPORT FROM ER AND ADMITTED TO ROOM. NO ACUTE DISTRESS. C/O OF SORE DRY THROAT WITH NASAL CONGESTION STATING THAT IS WHAT SHE CAME IN WITH AND NOW THEY ARE WORKING ON THE OTHER END. TELEMETRY APPLIED SHOWING SR WITH 1ST AVB. SEE ADMISSION HX AND ASSESSMENT. WILL CONT TO MONITOR AND ASSIST NEEDED.
[2018-12-28] VITALS: BP 175/53
[2018-12-28 04:00] VITALS: BP 145/36
[2018-12-28 05:30] LABS: ABSOLUTE BASOPHILS 0.1 thou/uL (0.0-0.2); ABSOLUTE EOSINOPHILS 0.2 thou/uL (0.0-0.7); ABSOLUTE LYMPHOCYTES 2.3 thou/uL (0.8-5.3); ABSOLUTE MONOCYTES 1.2 thou/uL (0.0-1.2); ABSOLUTE NEUTROPHILS 7.8 thou/uL (1.6-8.1); BASOPHILS 0.8 %; EOSINOPHILS 1.4 %; HEMATOCRIT 25.3 % (37.0-47.0); HEMOGLOBIN 7.8 gm/dL (12.0-15.0); LYMPHOCYTES 19.6 %; MCH 19.8 pg (26.0-34.0); MONOCYTES 10.4 %; MPV 7.3 fl. (7.2-11.1); NUCLEATED RBCS 0 /100WBC; PLATELET COUNT* 440 thou/uL (150-400); POLYS 67.8 %; RBC 3.96 mil/uL (4.20-5.00); RDW-CV 23.2 % (10.5-14.5); WBC 11.5 thou/uL (4.0-11.0)
--- NOTE | 2018-12-28 05:35 | NUR ---
AWAKE OCC. SBA TO BR AND BACK WITH STEADY GAIT BUT SLOW DUE TO KNEE PROBLEMS. PT STATED 1 STOOL GREEN AND TARRY BUT I DID NOT OBSERVE IT. IV PAIN MED GIVEN X1 AND EFFECTIVE FOR LOW BACK PAIN. C/O SOA WHEN RETURNING TO BED AFTER AMBULATION, O2 CHECKED FOR 92%, REASSURANCE GIVEN. TELEMETRY SHOWING BIGEMINY TO SR WITH BBB. HS GOALS OF REST AND SAFETY ACHIEVED. HOURLY ROUNDING OBSERVED.
[2018-12-28 05:58] LABS: CALCIUM 9.1 mg/dL (8.5-10.1); CREATININE 1.1 mg/dL (0.6-1.3); MAGNESIUM 1.8 mg/dL (1.8-2.4); POTASSIUM 3.8 mmol/L (3.5-5.1)
[2018-12-28 07:30] VITALS: BP 144/60
--- NOTE | 2018-12-28 10:04 | EKG ---
[place] [address] ELECTROCARDIOGRAM REPORT Name: SYLVAIN CHILDRESS Room: [address] ADM IN .R.#: [id number] Admission: 12/27/18 Attend Phys: Mariah Van MD Discharge: Date of : 49 Report #: [id number] THIS REPORT FOR: //name// [facility] ED Test Date: 2018-12-27 Test Time: 12:14:14 Pat Name: SYLVAIN CHILDRESS Department: Room: [facility] Gender: F Aligning Checker: : 1945 Requested By: Alejandra Diehl Order Number: [id number] MD: Manuel Blood Measurements Intervals [place] Rate: 94 P: 98 WI: 246 QRS: -61 QRSD: 99 T: 94 QT: 360 QTc: 451 Interpretive Statements Sinus rhythm Prolonged WI interval Left anterior fascicular block Anterior infarct, old Nonspecific T abnormalities, lateral leads Compared to ECG 06/14/2018 18:09:57 First degree AV block now present Left anterior fascicular block now present T-wave abnormality now present Sinus tachycardia no longer present Myocardial infarct finding still present Electronically Signed On 12-28-2018 10:04:04 CDT by Manuel Blood [email or web address] <ELECTRONICALLY SIGNED> By: Manuel Blood MD, [facility] 12/28/18 1004 1214 1214 Manuel Blood MD, [facility] /EPI
--- NOTE | 2018-12-28 12:24 | 2DMMODE ---
[place] [address] 2 D/M-MODE ECHOCARDIOGRAM Name: SYLVAIN CHILDRESS Room: [address] IN [facility]#: [id number] Admission: 12/27/18 Attend Phys: Mariah Van MD Discharge: Date of : 49 Date of Service: 12/28/18 1224 Report #: [id number] THIS REPORT FOR: //name// APPROVED REPORT Study performed: 12/28/2018 10:09:23 EXAM: Comprehensive 2D, Doppler, and color-flow Echocardiogram Patient Location: In-Patient Room #: 220 Status: routine BSA: 2.24 HR: 79 bpm BP: 144/60 mmHg Rhythm: NSR Other Information Study Quality: Good Indications Dyspnea 2D Dimensions IVSd: 13.48 (7-11mm) LVOT Diam: 21.34 (18-24mm) LVDd: 47.90 mm PWd: 12.53 (7-11mm) Ascending Ao: 27.66 (22-36mm) LVDs: 25.68 (25-40mm) Volumes Left Atrial Volume (Systole) LA ESV Index: 35.20 mL/m2 Aortic Valve AoV Peak Blaise.: 1.78 m/s AO Peak Gr.: 12.70 mmHg LVOT Max P.79 mmHg AO Mean Gr.: 7.12 mmHg LVOT Mean P.58 mmHg LVOT Max V: 0.97 m/s AO V2 VTI: 37.06 cm LVOT Mean V: 0.56 m/s RACHID (VTI): 1.92 cm2 LVOT V1 VTI: 19.91 cm Mitral Valve E/A Ratio: 0.86 MV Decel. Time: 251.79 ms MV E Max Blaise.: 1.29 m/s MV PHT: 73.02 [place] [address] 2 D/M-MODE ECHOCARDIOGRAM Name: SYLVAIN CHILDRESS Room: [address] IN .R.#: [id number] Admission: 12/27/18 Attend Phys: Mariah Van MD Discharge: Date of : 49 Date of Service: 12/28/18 1224 Report #: [id number] MVA (PHT): 3.01 cm2 TDI E/Lateral E': 8.06 E/Medial E': 10.75 Medial E' Blaise.: 0.12 m/s Lateral E' Blaise.: 0.16 m/s Pulmonary Valve PV Peak Blaise.: 1.29 m/s PV Peak Gr.: 6.62 mmHg Left Ventricle The left ventricle is normal size. There is normal LV segmental wall motion. There is normal left ventricular wall thickness. Left ventricular systolic function is normal. The left ventricular ejection fraction is within the normal range. LVEF is 55-60%. Grade I - abnormal relaxation pattern. Right Ventricle The right ventricle is normal size. The right ventricular systolic function is normal. Atria Left atrium is borderline dilated. The right atrium size is normal. Aortic Valve Aortic valve leaflets are mildly thickened. The aortic valve is not well visualized. No aortic regurgitation is present. Mild aortic stenosis. Mitral Valve The mitral valve is normal in structure. Mild mitral regurgitation. No evidence of mitral valve stenosis. Tricuspid Valve The tricuspid valve is normal in structure. There is no tricuspid valve regurgitation noted. Pulmonic Valve The pulmonary valve is normal in structure. There is no pulmonic valvular regurgitation. Great Vessels The aortic root is normal in size. IVC is normal in size and collapses >50% [place] [address] 2 D/M-MODE ECHOCARDIOGRAM Name: SYLVAIN CHILDRESS Room: [address] IN [facility]#: [id number] Admission: 12/27/18 Attend Phys: Mariah Van MD Discharge: Date of : 49 Date of Service: 12/28/18 1224 Report #: [id number] Pericardium There is no pericardial effusion. <Conclusion> LVEF is 55-60%. There is normal LV segmental wall motion. No aortic regurgitation is present. Mild aortic stenosis. No aortic regurgitation is present. Mild mitral regurgitation. <ELECTRONICALLY SIGNED> By: Manuel Blood MD, FACC 12/28/18 1224 1224 1224 Manuel Blood MD, FAC /INF
--- NOTE | 2018-12-28 15:43 | NUR ---
INITIAL ASSESSMENT: Pt evaluated for d/c planning needs. Reviewed chart and spoke with nurse and pt. Pt is alert and oriented. Pt lives in house with spouse and was independent with ADL's prior to admission to the hospital. Pt remains active in the community and is still driving. Pt uses cane for ambulation. Pt had home health after knee replacement surgery in 2005. Pt plans on returning home on d/c from hospital. Will remain available to assist as needed.
[2018-12-28 16:00] VITALS: BP 164/61
[2018-12-28] MEDS ORDERED: CLARITIN10 MG PO (17:37)
[2018-12-28 20:15] VITALS: BP 105/62
[2018-12-29] VITALS: BP 129/37
[2018-12-29 04:00] VITALS: BP 120/64; BP 142/61
--- NOTE | 2018-12-29 04:58 | NUR ---
PATIENT PROGRESSING TOWARDS GOALS: BACK PAIN PARTIALLY MANAGED WITH REST/RELAXATION AND PAIN MEDICATION. PATIENT TOLERATED IRON INFUSION WELL. HAS C/O SORE THROAT AND DRY MOUTH. PROVIDED WITH ICE CHIPS AND MOUTH MOISTURIZER. DENIES CHEST PAIN, N/V/D, AND SOA. VSS ON ROOM AIR. CALL LIGHT WITHIN REACH
[2018-12-29 05:30] LABS: HEMATOCRIT 27.2 % (37.0-47.0); HEMOGLOBIN 8.3 gm/dL (12.0-15.0); MCH 19.6 pg (26.0-34.0); MCHC 30.3 g/dL (28.0-37.0); MCV 64.8 fL (80.0-100.0); MPV 7.5 fl. (7.2-11.1); RBC 4.2 mil/uL (4.20-5.00); RDW-CV 23.3 % (10.5-14.5); WBC 13.3 thou/uL (4.0-11.0)
[2018-12-29 05:50] LABS: CALCIUM 8.9 mg/dL (8.5-10.1); CREATININE 1.2 mg/dL (0.6-1.3); MAGNESIUM 1.9 mg/dL (1.8-2.4); POTASSIUM 4.5 mmol/L (3.5-5.1)
--- NOTE | 2018-12-29 07:15 | NUR ---
CHANGE OF SHIFT BEDSIDE REPORT GIVEN PATIENT SEEN AT BEDSIDE, IN BED RESTING ASSUMED PATIENT CARE
[2018-12-29 08:00] VITALS: BP 111/41
[2018-12-29] MEDS ORDERED: PROTONIX40 M1 PO (11:39)
[2018-12-29 12:20] VITALS: BP 106/41
--- NOTE | 2018-12-29 13:49 | NUR ---
BILLIARD TABLE REPAIRER SPOKE TO THE PATIENT TO DISCUSS DISCHARGE PLANNING NEEDS AND HHH AT D/C. PATIENT DECLINED HH, AND STATES 'I DON'T KNO WANY REASON THAT I WOULD NEED THAT'. D/C SENIOR PROCUREMENT SPECIALIST INFORMED THE RN IN-CHARGE OF THE PATIENT OF THIS INFO. CM WILL REMAIN AVAILABLE TO ASSIST AND FOLLOW NEEDED.
--- NOTE | 2018-12-29 14:30 | NUR ---
DISCHARGE TO HOME IV AND HEART MONITOR REMOVED PERSONAL BELONGINGS RETURNED DISCHARGE INFORMATION REVIEWED AND ACKNOWLEDGED AND SIGNED COPIES GIVEN PATIENT ASSISTED OUT VIA WC TO WAITING CAR IN GOOD CONDITION
--- NOTE | 2018-12-29 17:07 | PATH ---
[facility] [address] [place] [address] PATHOLOGY RPT PROCEDURE Name: SYLVAIN CHILDRESS Room: [address] IN M.R.#: [id number] Admission: 12/27/18 Date of : 49 Discharge: 12/29/18 Report #: [id number] Path Case #: [id number] [facility] Accession Number: [id number] . 01 Material submitted: . GASTRIC BX . 01 Clinical history: . Rule out H. pylori . 02 Diagnosis: Gastric biopsy: - Mild nonspecific chronic gastritis, negative for Helicobacter pylori organisms and dysplasia. (CRIS:chris; 12/29/2018) . Special stain: H. pylori immuno MBR/12/29/2018 . 02 Electronically signed: . Leroy Garcia MD, Pathologist NPI- [id number] . 01 Gross description: . Received in formalin labeled "Melvin, Sylvain, gastric BX, rule out H. pylori," is a single segment of rizo soft tissue measuring 0.5 cm in maximum dimension. The specimen is entirely submitted in cassette A1. (TSD; 12/28/2018) TOB/TOB . 02 Pathologist provided ICD-10: K29.50 . 02 CPT . 197864, F30440 Specimen Comment: A courtesy copy of this report has been sent to Specimen Comment: [phone], . Specimen Comment: Report sent to / DR CUBA Performed at: [address] [facility], [place], [place] [id number] MD Jacques Rod MD Phone: [phone] Performed at: 02 [facility] [address], [place], [place] [id number] MD Leroy Garcia MD Phone: [phone]
== END 2018-12-29 14:30 | disposition home or self-care (01) | DRG 377 ==
LOC: M.ERS 11:27 → M.2W 14:02 → M.TBA-ER 14:02 → M.2W 23:19
PROVIDERS: Nurse Practitioner Adult Health; Personal Emergency Response Attendant; ADMIT Family Medicine
PROC: 30233N1 Transfusion of Nonautologous Red Blood Cells into Peripheral Vein, Percutaneous Approach (ICD-10-PCS; principal; 2018-12-27)
PROC: 0D598ZZ Destruction of Duodenum, Via Natural or Artificial Opening Endoscopic (ICD-10-PCS; 2018-12-28)
PROC: 0DB68ZX Excision of Stomach, Via Natural or Artificial Opening Endoscopic, Diagnostic (ICD-10-PCS; 2018-12-28)
DX: K55.21 Angiodysplasia of colon with hemorrhage (principal); R65.11 Systemic inflammatory response syndrome (SIRS) of non-infectious origin with acute organ dysfunction; J96.00 Acute respiratory failure, unspecified whether with hypoxia or hypercapnia; I50.22 Chronic systolic (congestive) heart failure; I13.0 Hypertensive heart and chronic kidney disease with heart failure and stage 1 through stage 4 chronic kidney disease, or unspecified chronic kidney disease; Z80.8 Family history of malignant neoplasm of other organs or systems; K25.4 Chronic or unspecified gastric ulcer with hemorrhage; E66.01 Morbid (severe) obesity due to excess calories; Z96.653 Presence of artificial knee joint, bilateral; N18.9 Chronic kidney disease, unspecified; I25.5 Ischemic cardiomyopathy; E11.22 Type 2 diabetes mellitus with diabetic chronic kidney disease; I25.10 Atherosclerotic heart disease of native coronary artery without angina pectoris; D50.9 Iron deficiency anemia, unspecified; J06.9 Acute upper respiratory infection, unspecified; Z90.710 Acquired absence of both cervix and uterus; Z98.42 Cataract extraction status, left eye; Z98.41 Cataract extraction status, right eye; Z88.6 Allergy status to analgesic agent; Z80.3 Family history of malignant neoplasm of breast

== ENCOUNTER → 2019-01-26 | Outpatient (CLI) | payer MEDICARE, OTHER ==
[~2019-01-26] MED LIST changes: +CLARITIN10 MG PO; +PROTONIX40 M1 PO
[2019-01-26 16:36] LABS: ABSOLUTE BASOPHILS 0.1 thou/uL (0.0-0.2); ABSOLUTE EOSINOPHILS 0.1 thou/uL (0.0-0.7); ABSOLUTE LYMPHOCYTES 1.5 thou/uL (0.8-5.3); ABSOLUTE MONOCYTES 0.9 thou/uL (0.0-1.2); ABSOLUTE NEUTROPHILS 8.3 thou/uL (1.6-8.1); BASOPHILS 1.3 %; EOSINOPHILS 0.8 %; HEMATOCRIT 30.8 % (37.0-47.0); HEMOGLOBIN 9.5 gm/dL (12.0-15.0); LYMPHOCYTES 13.8 %; MCH 20.8 pg (26.0-34.0); MCHC 30.9 g/dL (28.0-37.0); MCV 67.2 fL (80.0-100.0); MONOCYTES 8.3 %; MPV 8.8 fl. (7.2-11.1); NUCLEATED RBCS 0 /100WBC; PLATELET COUNT* 317 thou/uL (150-400); POLYS 75.8 %; RBC 4.58 mil/uL (4.20-5.00); WBC 10.9 thou/uL (4.0-11.0)
[2019-01-26 17:03] LABS: ALBUMIN 2.7 g/dL (3.4-5.0); CALCIUM 9.4 mg/dL (8.5-10.1); CREATININE 1.2 mg/dL (0.6-1.3); POTASSIUM 4.4 mmol/L (3.5-5.1); TOTAL BILIRUBIN 0.3 mg/dL (<0.1-1.0); TOTAL PROTEIN 6.9 g/dL (6.4-8.2)
[2019-01-26 20:44] LABS: ANISOCYTOSIS 2+; HYPOCHROMASIA 2+; MICROCYTES 2+
[2019-01-26 20:45] LABS: POLYCHROMASIA 1+; TARGET CELLS 1+
== END ==
LOC: M.LAB 16:21
PROVIDERS: Nurse Practitioner Adult Health
DX: D64.9 Anemia, unspecified (principal); K92.2 Gastrointestinal hemorrhage, unspecified

== ENCOUNTER → 2019-02-28 | Outpatient (CLI) | payer MEDICARE, OTHER ==
[2019-02-28 08:08] LABS: POTASSIUM 4.3 mmol/L (3.5-5.1)
== END ==
LOC: M.LAB 01:18
PROVIDERS: Student in an Organized Health Care Education/Training Program
DX: E11.9 Type 2 diabetes mellitus without complications (principal); E87.6 Hypokalemia

== ENCOUNTER 2019-06-12 17:10 | Inpatient (IN) | payer MEDICARE, OTHER ==
[~2019-06-12] VITALS: Ht 165.1 cm; Wt 105.2 kg
[2019-06-12] VITALS (9 sets, daily range): BP systolic 101–192; BP diastolic 44–137
[2019-06-12] MEDS ORDERED: KLOR-CON M2020 MEQ PO (17:22)
[2019-06-12] MEDS ORDERED: PRAVACHOL40 MG PO (17:22)
[2019-06-12 17:36] LABS: HEMATOCRIT 39.8 % (37.0-47.0); HEMOGLOBIN 12.1 gm/dL (12.0-15.0); MCHC 30.5 g/dL (28.0-37.0); MCV 75.3 fL (80.0-100.0); MPV 7.6 fl. (7.2-11.1); NUCLEATED RBCS 0 /100WBC; PLATELET COUNT* 431 thou/uL (150-400); RBC 5.28 mil/uL (4.20-5.00); RDW-CV 16.4 % (10.5-14.5); WBC 23.4 thou/uL (4.0-11.0)
[2019-06-12 17:48] LABS: APTT 23.8 Seconds (25.0-31.3); PROTIME 10.6 Seconds (9.20-11.50)
[2019-06-12 17:49] LABS: ANION GAP 13 mmol/L (7-16); BUN 21 mg/dL (7-18); CHLORIDE 95 mmol/L (98-107); CO2 23 mmol/L (21-32); CREATININE 1.4 mg/dL (0.6-1.3); GLUCOSE 351 mg/dL (70-99); POTASSIUM 4.7 mmol/L (3.5-5.1); SODIUM 131 mmol/L (136-145)
[2019-06-12 18:00] LABS: ALBUMIN 3.2 g/dL (3.4-5.0); ALKALINE PHOSPHATASE 83 U/L (46-116); NT-PRO BRAIN NAT PEPTIDE 12296 pg/mL (<300); SGOT 31 U/L (15-37); SGPT 29 U/L (30-65); TOTAL BILIRUBIN 0.2 mg/dL (<0.1-1.0); TOTAL PROTEIN 7.2 g/dL (6.4-8.2); TROPONIN-I LEVEL <0.06 ng/mL (<0.06)
[2019-06-12 18:08] LABS: BE -5.1 mmol/L (-2 to +3); PCO2 41.2 mmHg (35.0-45.0); pH 7.319 (7.340-7.450)
[2019-06-12 18:12] LABS: PO2 170.9 mmHg (75.0-100.0)
[2019-06-12 18:18] LABS: ABSOLUTE LYMPHOCYTES 7.5 thou/uL (0.8-5.3); ABSOLUTE MONOCYTES 1.9 thou/uL (0.0-1.2)
[2019-06-12 18:19] LABS: PLATELET ESTIMATE INCREASED
[2019-06-12 18:22] LABS: HYPOCHROMASIA 1+
[2019-06-13] VITALS (30 sets, daily range): BP systolic 112–192; BP diastolic 55–110
[2019-06-13 05:30] LABS: BE -1.3 mmol/L (-2 to +3); PCO2 37.6 mmHg (35.0-45.0); PO2 90.9 mmHg (75.0-100.0); pH 7.405 (7.340-7.450)
--- NOTE | 2019-06-13 06:33 | NUR ---
PT ADMITTED TO ICU AT 1830 FOR RESPIRATORY FAILURE, SEPSIS. PT INTUBATED IN ED WITH 7.5 ET TUBE. PT MAINTAINED O2 SAT > 96% THROUGHOUT SHIFT ON FIO2 30%. PT OPENS EYES TO TOUCH AND VOICE. PT FOLLOWS COMMANDS. PT IN BILATERAL SOFT WRIST RESTRAINTS TO MAINTAIN ET TUBE, GARLAND CATHERTER, CENTRAL LINE AND NG. PT SEDATED ON PROPOFOL DRIP FOR SEDATION. VITAL SIGNS WITHIN NORMAL LIMITS DURING SHIFT, WILL CONTINUE TO MONITOR CLOSELY.
--- NOTE | 2019-06-13 10:00 | NUR ---
PT FOLLOWING COMMANDS. ORAL CARE GIVEN. PT REPOSITIONED. FAMILY AT BEDSIDE. VSS. WILL CONINUE PLAN OF CARE.
--- NOTE | 2019-06-13 10:30 | EKG ---
[place] [address] ELECTROCARDIOGRAM REPORT Name: SYLVAIN CHILDRESS Room: [address] ADM IN M.R.#: [id number] Admission: 06/12/19 Attend Phys: Bianca Sarah Discharge: Date of : 49 Report #: [id number] THIS REPORT FOR: //name// [facility] ED Test Date: 2019-06-12 Test Time: 17:13:36 Pat Name: SYLVAIN CHILDRESS Department: Room: [facility] Gender: F Regional Sales Associate: : 1945 Requested By: Rishabh Soria Order Number: [id number] MD: Jose Antonio Florian Measurements Intervals [place] Rate: 127 P: 236 [place]: 54 QRS: -51 QRSD: 109 T: 84 QT: 380 QTc: 553 Interpretive Statements Sinus or ectopic atrial tachycardia old inferior infarction Anterior infarct, old Prolonged QT interval Compared to ECG 12/27/2018 12:14:14 Prolonged QT interval now present Sinus rhythm no longer present Myocardial infarct finding still present Electronically Signed On 06-13-2019 10:30:27 CDT by Jose Antonio Florian [email or web address] <ELECTRONICALLY SIGNED> By: Jose Antonio Florian MD, [facility] 06/13/19 1030 1713 1713 Jose Antonio Florian MD, [facility] /EPI
--- NOTE | 2019-06-13 10:39 | NUR ---
Nutrition: Per ICU rounds, possible extubation. Will follow POC and make recs as appropriate. Follow up 06/14/19.
--- NOTE | 2019-06-13 12:00 | NUR ---
RECEIVED ORDERS TO DO A T-TUBE TRIAL. IT PT DOES NOT DO WELL TO CONSULT PULMONARY. RT COMMUNICATED T-TUBE RESULTS TO PHYSICAN. PT EXTUBATED AT 1145 AND PLACED ON 3L NC.
--- NOTE | 2019-06-13 16:05 | 2DMMODE ---
[place] [address] 2 D/M-MODE ECHOCARDIOGRAM Name: SYLVAIN CHILDRESS [facility]#: [id number] Admission: 06/12/19 Attend Phys: Kevin Willis Discharge: Date of : 49 Date of Service: 06/13/19 1605 Report #: [id number] THIS REPORT FOR: //name// APPROVED REPORT Study performed: 06/13/2019 12:10:57 EXAM: Comprehensive 2D, Doppler, and color-flow Echocardiogram Patient Location: In-Patient Room #: [facility] Status: routine BSA: 2.09 HR: 94 bpm BP: 182/84 mmHg Rhythm: NSR Other Information Study Quality: Good Indications Congestive Heart Failure 2D Dimensions IVSd: 14.40 (7-11mm) LVOT Diam: 20.99 (18-24mm) LVDd: 57.79 mm PWd: 11.73 (7-11mm) Ascending Ao: 30.61 (22-36mm) LVDs: 47.09 (25-40mm) Aortic Root: 30.89 mm Volumes Left Atrial Volume (Systole) LA ESV Index: 48.20 mL/m2 Aortic Valve AoV Peak Blaise.: 1.45 m/s AO Peak Gr.: 8.38 mmHg LVOT Max P.11 mmHg AO Mean Gr.: 4.90 mmHg LVOT Mean P.43 mmHg LVOT Max V: 0.88 m/s AO V2 VTI: 27.24 cm LVOT Mean V: 0.55 m/s RACHID (VTI): 2.14 cm2 LVOT V1 VTI: 16.82 cm Mitral Valve E/A Ratio: 1.32 MV Decel. Time: 159.40 ms MV E Max Blaise.: 1.48 m/[place] [address] 2 D/M-MODE ECHOCARDIOGRAM Name: SYLVAIN CHILDRESS Room: [address] IN [facility].#: [id number] Admission: 06/12/19 Attend Phys: Kevin Willis Discharge: Date of : 49 Date of Service: 06/13/19 1605 Report #: [id number] MV PHT: 46.23 ms MVA (PHT): 4.76 cm2 TDI E/Lateral E': 13.45 E/Medial E': 14.80 Medial E' Blaise.: 0.10 m/s Lateral E' Blaise.: 0.11 m/s Pulmonary Valve PV Peak Blaise.: 0.96 m/s PV Peak Gr.: 3.71 mmHg Left Ventricle Left ventricle is mildy dilated. There is severe global hypokinesis of the left ventricle. Mild concentric left ventricular hypertrophy. Left ventricular systolic function is moderate to severely decreased. LVEF is 25-30%. Grade IV - fixed restrictive diastolic dysfunction. Right Ventricle The right ventricle is normal size. The right ventricular systolic function is normal. Atria Left atrium is severely dilated. The right atrium size is normal. Aortic Valve The aortic valve is not well visualized. No aortic regurgitation is present. There is no aortic valvular stenosis. Mitral Valve The mitral valve is normal in structure. Mild mitral regurgitation. No evidence of mitral valve stenosis. Tricuspid Valve The tricuspid valve is normal in structure. Unable to assess PA pressure. Trace tricuspid regurgitation. Pulmonic Valve Pulmonic valve is not well visualized. There is no pulmonic valvular regurgitation. Great Vessels The aortic root is normal in size. IVC is normal in size and collapses >50% [place] [address] 2 D/M-MODE ECHOCARDIOGRAM Name: SYLVAIN CHILDRESS Room: [address] IN [facility]#: [id number] Admission: 06/12/19 Attend Phys: Kevin Willis Discharge: Date of : 49 Date of Service: 06/13/19 1605 Report #: [id number] Pericardium There is no pericardial effusion. <Conclusion> LVEF is 25-30%. Left atrium is severely dilated. Mild mitral regurgitation. Mild concentric left ventricular hypertrophy. <ELECTRONICALLY SIGNED> By: Jose Antonio Florian MD, [facility] 06/13/19 1605 1605 1605 Jose Antonio Florian MD, [facility] /INF
--- NOTE | 2019-06-13 17:00 | NUR ---
SW met with pt to complete initial assessment, introduce self, and SW role. Pt alert, oriented, pleasant, sitting edge of bed. Pt lives at home with spouse; pt explained they are normally independent at home. Pt expressed possible need for home oxygen and if needed, pt said that she would need to request small portable carry on shoulder/backpack type due to pt hx of double rotator cuff surgery. Pt might have need for HH services at dc or other support services/resources. SW/CM to continue to follow to assist with safe dc planning.
--- NOTE | 2019-06-13 18:00 | NUR ---
PT TOLERATING 3L NC. BEDSIDE SWALLOW PREFORMED BY RN AND PT PASSED. DR NOTIFIED AND REQUESTED ORDER FOR LIQUID DIET. PT STATES SHE HAS NOT EATEN AND IS HUNGRY. RECEIVED ORDER FOR FULL LIQUID DIET. PT TOLERATING LIQUID DIET. PT SITTING AT SIDE OF BED.
[2019-06-14] VITALS (9 sets, daily range): BP systolic 133–153; BP diastolic 59–113
[2019-06-14 06:14] LABS: CALCIUM 8.6 mg/dL (8.5-10.1); CREATININE 1.1 mg/dL (0.6-1.3); POTASSIUM 4.3 mmol/L (3.5-5.1)
--- NOTE | 2019-06-14 10:15 | NUR ---
ICU rounds: Pt tele status now. Pt advanced diet today, ring out, has central line, IV abx and 2 to 3 L of oxygen. SBA with family.
--- NOTE | 2019-06-14 12:50 | NUR ---
PT. DECLINES O.T. EVAL DUE TO BEING BACK TO BASELINE INDEPENDENT LEVEL. WILL DISCHARGE PT. FROM O.T. [place] AT THIS TIME. PT. WAS IN ROOM EOB AND ON ROOM AIR.
--- NOTE | 2019-06-14 15:16 | NUR ---
PT A&O X4. VSS. O2 SATS >93% IN RA. PT UPTO THE BSC AT STAND BY ASSIST. CENTRAL LINE DSG CHANGED. DENIES PAIN, SOA. TOLERATING DIET. GOOD OUTPUT. REPORT GIVEN TO SALVADOR CHEUNG.
--- NOTE | 2019-06-14 18:13 | NUR ---
PT TRANSFERRED TO ROOM 218 VIA WHEELCHAIR FROM ICU AT APPROXIMATELY 1500. REPORT RECEIVED FROM CATHY ESTEBAN. THIS RN AGREES WITH PREVIOUS EDUCATIONAL PARAPROFESSIONAL. VSS. PT A&0X4. PT TRACING SR WITH FIRST DEGREE AND OCCASIONAL PVC'S ON THE WELT SOLE LAYER. ON RA SAT UPPER 90'S. PT DENIES ANY PAIN OR SHORTNESS OF BREATH. PT UP WITH SBA TO BATHROOM. FAMILY AT BEDSIDE AND UPDATED ON CURRENT PLAN OF CARE. MEDICATIONS PER MAR. PT REPOSITIONS SELF. HOURLY ROUNDING OBSERVED. BED IN LOW POSITION. CALL LIGHT WITHIN REACH. WILL CONTINUE PLAN OF CARE.
[2019-06-15] VITALS: BP 110/62
[2019-06-15 04:00] VITALS: BP 104/44
[2019-06-15 05:31] LABS: HEMATOCRIT 36.6 % (37.0-47.0); HEMOGLOBIN 11.5 gm/dL (12.0-15.0); MCH 22.8 pg (26.0-34.0); MCHC 31.4 g/dL (28.0-37.0); MCV 72.6 fL (80.0-100.0); MPV 7.4 fl. (7.2-11.1); RBC 5.04 mil/uL (4.20-5.00); RDW-CV 16.6 % (10.5-14.5); WBC 13.8 thou/uL (4.0-11.0)
--- NOTE | 2019-06-15 05:40 | NUR ---
PATIENT SLEPT PART OF THE NIGHT. IV VANC WAS GIVEN ORDERED. PATIENT HAD NO COMPLAINTS OF PAIN. PATIENT REMAINS ON ROOM AIR. PATIENT REFUSED TO TAKE PO POTASSIUM STATING IT WAS GIVING HER DIARRHEA AND THAT IS CAUSES STOMACH ULCERS. WILL CONTINUE TO MONITOR.
[2019-06-15 05:58] LABS: CALCIUM 9.1 mg/dL (8.5-10.1); CREATININE 1.4 mg/dL (0.6-1.3); MAGNESIUM 1.8 mg/dL (1.8-2.4); POTASSIUM 4.4 mmol/L (3.5-5.1)
[2019-06-15 07:50] VITALS: BP 138/54
--- NOTE | 2019-06-15 09:00 | NUR ---
ASSUMED CARE OF PT AT 0730. PT RESTING IN BED WAITING FOR BREAKFAST. PT FAMILY AT BEDSIDE. PT A&0X4, DENIES ANY PAIN OR SHORTNESS OF BREATH AT THIS TIME. PT TRACING SR WITH FIRST DEGREE AND PVC'S ON THE GUN SEALING MACHINE OPERATOR. ON RA SAT UPPER 90'S. PT UP WITH 1 SBA TO BATHROOM. PT GOAL FOR TODAY IS DISCHARGE PLANNING TO HOME. AM ASSESSMENT CHARTED. MEDICATIONS PER MAR. PT REPOSITIONS SELF. HOURLY ROUNDING OBSERVED. BED IN LOW POSITION. CALL LIGHT WITHIN REACH. WILL CONTINUE PLAN OF CARE.
[2019-06-15] MEDS ORDERED: SPIRONOLACTONE25 M1 PO ×2 (11:06→12:10)
[2019-06-15] MEDS ORDERED: PREDNISONE 10 M10 MG PO (11:46)
[2019-06-15] MEDS ORDERED: LASIX 40 MG TAB40 M2 PO ×2 (11:46→11:56)
[2019-06-15] MEDS ORDERED: LEVAQUIN 500 M500 M2 PO (11:46)
[2019-06-15] MEDS ORDERED: SPIRONOLACTONE25 MG PO (11:46)
[2019-06-15 12:20] VITALS: BP 168/93
--- NOTE | 2019-06-15 14:00 | CON ---
[address] [address] CONSULTATION Name: SYLVAIN CHILDRESS Room: [address] IN M.R.#: [id number] Admission: 06/12/19 Attend Phys: Bianca Sarah Discharge: Date of : 49 Report #: [id number] THIS REPORT FOR: //name// CC: Jacques Alfredo DATE OF SERVICE: 06/13/2019 CARDIOLOGY CONSULTATION HISTORY OF PRESENT ILLNESS: The patient is a 74-year-old black female, who I was asked to see in the hospital today after she complained of being short of breath. The patient previously was followed by my partner, Dr. Blood. She actually had a heart catheterization a year ago in 05/2018 that showed mild coronary artery disease with a 50% narrowing of the mid LAD, 60% narrowing of the circumflex artery and a 40% stenosis of the right coronary artery. Echocardiogram in December of this year showed an ejection fraction of 55%. She is not very active at this time. Apparently in the spring, she had a dark stool and had an upper endoscopy and had to have an area in her stomach cauterized. She has had a previous colonoscopy that was unremarkable. Last week, she developed what she called allergies with sneezing, cough, and her ears were itching. She went to see her primary care physician who gave her some antibiotics and an injection of steroids. Yesterday, she became more short of breath and called an ambulance. She was brought here to [facility] and admitted. She denies any recent chest pain, palpitations, syncope, swelling or orthopnea. PAST MEDICAL HISTORY: She has had back surgery, carpal tunnel surgery, hysterectomy, cervical cancer, knee replacement, shoulder surgery, hypertension, diabetes and hyperlipidemia. MEDICATIONS: Include albuterol nebulizer, carvedilol, Lasix, losartan, metformin, Protonix, potassium, and Pravachol. ALLERGIES: SHE HAS INTOLERANCE TO CODEINE. FAMILY HISTORY: Negative for heart disease. SOCIAL HISTORY: She is . She and her live in [place], quit smoking years ago. No alcohol abuse. REVIEW OF SYSTEMS: She has had no history of stroke or liver disease. She has had kidney stones. She had cervical cancer. No psychiatric illness. [place] [address] CONSULTATION Name: SYLVAIN CHILDRESS Room: [address]#: [id number] Admission: 06/12/19 Attend Phys: Bianca Sarah Discharge: Date of : 49 Report #: [id number] PHYSICAL EXAMINATION: GENERAL: Revealed a large, elderly black female, lying in bed. She appeared in no distress. VITAL SIGNS: She had a blood pressure of 110/60, pulse is 80 and she is afebrile. HEENT: She was anicteric. Conjunctivae pink. Mucous membranes moist. NECK: No carotid bruits. CHEST: Revealed decreased breath sounds at the bases. CARDIOVASCULAR: Regular rate and rhythm. No murmur. ABDOMEN: Obese. EXTREMITIES: Had no pitting edema. No Homans' sign. Dorsalis pedis pulse 1+ bilaterally. SKIN: Cool and dry. NEUROLOGICAL: Nonfocal. RADIOLOGICAL DATA: Her ECG showed a sinus tachycardia, left axis, septal Q-waves and nonspecific ST and T-wave changes. Her workup in the Emergency Room yesterday, she had portable chest x-ray that showed normal heart size, showed possible infiltrate, otherwise unremarkable. LABORATORY DATA: Her workup: Sodium 131, BUN 21, creatinine 1.4 and glucose 192. Liver function studies were normal. Troponin 0.06. BNP 12,296. A year ago, TSH was 1.4. White blood cell count 23.4, hemoglobin 12.1 and hematocrit 39.8. IMPRESSION AND RECOMMENDATIONS: 1. Shortness of breath. Suspect chronic obstructive pulmonary disease. 2. Obesity. 3. Hypertension. The patient is on a beta chikis, adrenergic receptor binder. 4. Diabetes. 5. Hyperlipidemia. The patient is on a statin drug. 6. History of gastrointestinal bleed. Previous upper endoscopy. <ELECTRONICALLY SIGNED> By: Jose Antonio Florian MD, FACC 06/15/19 1400 1320 [id number] Florian MD, FACC /nt
--- NOTE | 2019-06-15 14:16 | NUR ---
DISCHARGE ORDERS RECEIVED. DISCHARGE INSTRUCTIONS, CARE NOTES, SCRIPTS AND FOLLOW UP APPTS GIVEN TO PT. PT COMMUNICATES UNDERSTANDING OF DISCHARGE TEACHING. CENTRAL LINE REMOVED. AIRPORT DUTY MANAGER REMOVED. PT DISCHARGED WITH ALL BELONGINGS AND PAPERWORK VIA WHEELCHAIR WITH [employer] TO HUSBANDS OWN PERSONAL VEHICLE.
== END 2019-06-15 14:17 | disposition home or self-care (01) | DRG 871 ==
LOC: M.ERS 17:10 → M.ICU 18:13 → M.TBA-ER 18:13 → M.ICU 18:47 → M.2W 06-14 15:06
PROVIDERS: Family Medicine; Internal Medicine; Internal Medicine Cardiovascular Disease; ADMIT Internal Medicine
PROC: 5A09357 Assistance with Respiratory Ventilation, Less than 24 Consecutive Hours, Continuous Positive Airway Pressure (ICD-10-PCS; principal; 2019-06-12)
PROC: 05HY33Z Insertion of Infusion Device into Upper Vein, Percutaneous Approach (ICD-10-PCS; principal; 2019-06-12)
PROC: 0BH17EZ Insertion of Endotracheal Airway into Trachea, Via Natural or Artificial Opening (ICD-10-PCS; principal; 2019-06-12)
PROC: 5A1935Z Respiratory Ventilation, Less than 24 Consecutive Hours (ICD-10-PCS; principal; 2019-06-12)
DX: A41.9 Sepsis, unspecified organism (principal); J96.01 Acute respiratory failure with hypoxia; I50.43 Acute on chronic combined systolic (congestive) and diastolic (congestive) heart failure; J15.6 Pneumonia due to other Gram-negative bacteria; I11.0 Hypertensive heart disease with heart failure; Z96.651 Presence of right artificial knee joint; E11.9 Type 2 diabetes mellitus without complications; E78.5 Hyperlipidemia, unspecified; E66.01 Morbid (severe) obesity due to excess calories; Z79.899 Other long term (current) drug therapy; Z88.6 Allergy status to analgesic agent; Z90.710 Acquired absence of both cervix and uterus; Z98.42 Cataract extraction status, left eye; Z98.41 Cataract extraction status, right eye; Z68.38 Body mass index [BMI] 38.0-38.9, adult; Z85.41 Personal history of malignant neoplasm of cervix uteri

== ENCOUNTER → 2019-06-22 | Outpatient (CLI) | payer MEDICARE, OTHER ==
[~2019-06-22] MED LIST changes: +KLOR-CON M2020 MEQ PO; +LEVAQUIN 500 M500 M2 PO; +PRAVACHOL40 MG PO; +PREDNISONE 10 M10 MG PO; +SPIRONOLACTONE25 M1 PO; +SPIRONOLACTONE25 MG PO
[2019-06-22 12:33] LABS: ALBUMIN 2.6 g/dL (3.4-5.0); CALCIUM 9.2 mg/dL (8.5-10.1); CREATININE 1.3 mg/dL (0.6-1.3); POTASSIUM 5.4 mmol/L (3.5-5.1); TOTAL BILIRUBIN 0.2 mg/dL (<0.1-1.0); TOTAL PROTEIN 6.6 g/dL (6.4-8.2)
== END ==
LOC: M.LAB 11:57
PROVIDERS: Registered Nurse
DX: I42.8 Other cardiomyopathies (principal)

== ENCOUNTER → 2019-07-11 | Outpatient (CLI) | payer MEDICARE, OTHER ==
[2019-07-11 12:48] LABS: CREATININE 1.1 mg/dL (0.6-1.3); POTASSIUM 3.9 mmol/L (3.5-5.1)
== END ==
LOC: M.LAB 12:21
PROVIDERS: Registered Nurse
DX: I42.8 Other cardiomyopathies (principal)

== ENCOUNTER → 2019-08-30 | Outpatient (CLI) | payer MEDICARE, OTHER | LOC: M.ULTRA 11:15 | DX: M79.89 Other specified soft tissue disorders (principal); M79.604 Pain in right leg ==

== ENCOUNTER → 2019-11-08 | Outpatient (CLI) | payer MEDICARE, OTHER | LOC: M.ULTRA 11-01 13:00 | DX: E11.621 Type 2 diabetes mellitus with foot ulcer (principal); I73.9 Peripheral vascular disease, unspecified ==

== ENCOUNTER → 2019-11-18 | Outpatient (CLI) | payer MEDICARE, OTHER | LOC: M.WC 08:57 | DX: E11.622 Type 2 diabetes mellitus with other skin ulcer (principal); I70.238 Atherosclerosis of native arteries of right leg with ulceration of other part of lower leg; L97.811 Non-pressure chronic ulcer of other part of right lower leg limited to breakdown of skin; E11.621 Type 2 diabetes mellitus with foot ulcer; L97.411 Non-pressure chronic ulcer of right heel and midfoot limited to breakdown of skin; L97.511 Non-pressure chronic ulcer of other part of right foot limited to breakdown of skin; L84 Corns and callosities; E11.65 Type 2 diabetes mellitus with hyperglycemia; E11.51 Type 2 diabetes mellitus with diabetic peripheral angiopathy without gangrene; E78.5 Hyperlipidemia, unspecified; G47.00 Insomnia, unspecified; I50.22 Chronic systolic (congestive) heart failure; I25.10 Atherosclerotic heart disease of native coronary artery without angina pectoris; K21.9 Gastro-esophageal reflux disease without esophagitis; J45.909 Unspecified asthma, uncomplicated; M19.90 Unspecified osteoarthritis, unspecified site; Z87.891 Personal history of nicotine dependence; Z90.49 Acquired absence of other specified parts of digestive tract; Z96.651 Presence of right artificial knee joint; Z90.710 Acquired absence of both cervix and uterus; Z79.82 Long term (current) use of aspirin ==

== ENCOUNTER 2020-06-20 09:52 | Emergency (ER) | payer MEDICARE, OTHER ==
[~2020-06-20] VITALS: Ht 167.6 cm; Wt 69.8 kg
[2020-06-20] MEDS ORDERED: BACTRIM DS TAB1 EACH PO (10:15)
[2020-06-20] MEDS ORDERED: KEFLEX500 M1 PO (10:15)
[2020-06-20 10:22] VITALS: BP 139/51
== END 2020-06-20 10:52 | disposition home or self-care (01) ==
LOC: M.ERS 09:52
DX: L76.34 Postprocedural seroma of skin and subcutaneous tissue following other procedure (principal); I50.9 Heart failure, unspecified; I11.0 Hypertensive heart disease with heart failure; E11.9 Type 2 diabetes mellitus without complications; E66.01 Morbid (severe) obesity due to excess calories; Z68.24 Body mass index [BMI] 24.0-24.9, adult; Z90.710 Acquired absence of both cervix and uterus; Z88.6 Allergy status to analgesic agent

== ENCOUNTER → 2020-12-05 | Outpatient (CLI) | payer MEDICARE, OTHER ==
[~2020-12-05] MED LIST changes: +BACTRIM DS TAB1 EACH PO; +KEFLEX500 M1 PO
--- NOTE | 2020-12-05 12:38 | 2DMMODE ---
[place] [address] 2 D/M-MODE ECHOCARDIOGRAM Name: SYLVAIN CHILDRESS Room: [facility]#: [id number] Admission: 12/05/20 Attend Phys: Yulisa Doshi, Discharge: Date of : 49 Date of Service: 12/05/20 1238 Report #: [id number] THIS REPORT FOR: cc: Jacques Jenkins Russell J. DO Holkins,Renard Mcgarry MD [facility] ~ APPROVED REPORT Study performed: 12/05/2020 10:29:13 EXAM: Comprehensive 2D, Doppler, and color-flow Echocardiogram Patient Location: Out-Patient BSA: 1.78 HR: 88 bpm BP: 120/60 mmHg Other Information Study Quality: Fair Technically limited study due to inability to position patient. Indications Cardiomyopathy 2D Dimensions IVSd: 12.22 (7-11mm) LVOT Diam: 20.43 (18-24mm) LVDd: 46.33 mm PWd: 11.00 (7-11mm) Ascending Ao: 28.85 (22-36mm) LVDs: 25.51 (25-40mm) Aortic Root: 31.83 mm Volumes Left Atrial Volume (Systole) LA ESV Index: 20.70 mL/m2 Aortic Valve AoV Peak Blaise.: 1.09 m/s AO Peak Gr.: 4.73 mmHg LVOT Max P.82 mmHg AO Mean Gr.: 2.72 mmHg LVOT Mean P.26 mmHg LVOT Max V: 0.84 m/s AO V2 VTI: 24.02 cm LVOT Mean V: 0.51 m/s RACHID (VTI): 2.30 cm2 LVOT V1 VTI: 16.85 [place] [address] 2 D/M-MODE ECHOCARDIOGRAM Name: SYLVAIN CHILDRESS Room: [facility]#: [id number] Admission: 12/05/20 Attend Phys: Yulisa Doshi, Discharge: Date of : 49 Date of Service: 12/05/20 1238 Report #: [id number] Mitral Valve MV Decel. Time: 116.03 ms MV PHT: 33.65 ms MVA (PHT): 6.54 cm2 TDI Medial E' Blaise.: 0.14 m/s Lateral E' Blaise.: 0.18 m/s Pulmonary Valve PV Peak Blaise.: 1.12 m/s PV Peak Gr.: 4.98 mmHg Left Ventricle The left ventricle is normal size. There is normal LV segmental wall motion. There is normal left ventricular wall thickness. Left ventricular systolic function is normal. The left ventricular ejection fraction is within the normal range. LVEF is 55-60%. This study is not technically sufficient to allow evaluation of the LV diastolic function. Right Ventricle The right ventricle is normal size. The right ventricular systolic function is normal. Atria The left atrium size is normal. The right atrium size is normal. Aortic Valve Mild aortic valve sclerosis. Trace aortic regurgitation. There is no aortic valvular stenosis. Mitral Valve Mild mitral annular calcification. Trace mitral regurgitation. No evidence of mitral valve stenosis. Tricuspid Valve The tricuspid valve is normal in structure. There is no tricuspid valve regurgitation noted. Pulmonic Valve The pulmonary valve is normal in structure. There is no pulmonic valvular regurgitation. Great Vessels The aortic root is normal in size. IVC is [place] [address] 2 D/M-MODE ECHOCARDIOGRAM Name: SYLVAIN CHILDRESS Room: [facility]#: [id number] Admission: 12/05/20 Attend Phys: Yulisa Doshi, Discharge: Date of : 49 Date of Service: 12/05/20 1238 Report #: [id number] collapses >50% with inspiration. Pericardium There is no pericardial effusion. <Conclusion> The left ventricle is normal size. There is normal left ventricular wall thickness. Left ventricular systolic function is normal. The left ventricular ejection fraction is within the normal range. LVEF is 55-60%. The right ventricle is normal size. The left atrium size is normal. Mild aortic valve sclerosis. Trace aortic regurgitation. There is no aortic valvular stenosis. Mild mitral annular calcification. Trace mitral regurgitation. The tricuspid valve is normal in structure. IVC is normal in size and collapses >50% with inspiration. There is no pericardial effusion. There is normal LV segmental wall motion. <ELECTRONICALLY SIGNED> By: Renard Parra MD, FACC 12/05/20 1238 1238 1238 Renard Parra MD, FACC /INF
== END ==
LOC: M.CRD 09:00
PROVIDERS: ATTEND Nurse Practitioner
DX: I08.0 Rheumatic disorders of both mitral and aortic valves (principal); I50.42 Chronic combined systolic (congestive) and diastolic (congestive) heart failure; I42.8 Other cardiomyopathies

== ENCOUNTER → 2021-03-13 | Outpatient (CLI) | payer MEDICARE, OTHER ==
[2021-03-13 11:17] LABS: CALCIUM 8.7 mg/dL (8.5-10.1); CREATININE 1.4 mg/dL (0.6-1.3); POTASSIUM 5.3 mmol/L (3.5-5.1)
== END ==
LOC: M.LAB 10:46
PROVIDERS: ATTEND Nurse Practitioner
DX: I50.42 Chronic combined systolic (congestive) and diastolic (congestive) heart failure (principal)

== ENCOUNTER 2021-04-12 09:08 | Emergency (ER) | payer MEDICARE, OTHER ==
[~2021-04-12] VITALS: Ht 167.6 cm; Wt 70.8 kg
[2021-04-12] MEDS ORDERED: LIPITOR 20 MG T20 M1 PO (09:56)
[2021-04-12] MEDS ORDERED: ASA81BEC PO (09:56)
[2021-04-12] MEDS ORDERED: ENTRESTO 24 MG1 EACH PO (09:56)
[2021-04-12] MEDS ORDERED: NORVASC5 MG PO (09:56)
[2021-04-12] MEDS ORDERED: CULTURELLE KID1 EAC1 PO (09:57)
[2021-04-12] MEDS ORDERED: LANTUS SUBQ (09:57)
[2021-04-12] MEDS ORDERED: PROZAC20 M1 PO (09:57)
[2021-04-12] MEDS ORDERED: MIRTAZAPINE15 M1 PO (09:58)
[2021-04-12 11:48] LABS: ABSOLUTE BASOPHILS 0.1 thou/uL (0.0-0.2); ABSOLUTE EOSINOPHILS 0.2 thou/uL (0.0-0.7); ABSOLUTE LYMPHOCYTES 3.3 thou/uL (0.8-5.3); ABSOLUTE MONOCYTES 1.1 thou/uL (0.0-1.2); ABSOLUTE NEUTROPHILS 8.6 thou/uL (1.6-8.1); BASOPHILS 0.4 %; EOSINOPHILS 1.7 %; HEMATOCRIT 24.8 % (37.0-47.0); HEMOGLOBIN 7.7 gm/dL (12.0-15.0); MCH 23.8 pg (26.0-34.0); MCHC 31.1 g/dL (28.0-37.0); MCV 76.4 fL (80.0-100.0); MONOCYTES 8.6 %; MPV 7.4 fl. (7.2-11.1); NUCLEATED RBCS 0 /100WBC; PLATELET COUNT* 360 thou/uL (150-400); POLYS 64.3 %; RBC 3.25 mil/uL (4.20-5.00); RDW-CV 16.8 % (10.5-14.5); WBC 13.3 thou/uL (4.0-11.0)
[2021-04-12 11:58] LABS: CALCIUM 8.6 mg/dL (8.5-10.1); CREATININE 1.4 mg/dL (0.6-1.3); POTASSIUM 5.3 mmol/L (3.5-5.1)
[2021-04-12 12:03] LABS: ALBUMIN 3.1 g/dL (3.4-5.0); TOTAL BILIRUBIN 0.1 mg/dL (<0.1-1.0); TOTAL PROTEIN 7.4 g/dL (6.4-8.2)
[2021-04-12] MEDS ORDERED: PROVENTIL HFA6.7 G1 INH (12:25)
[2021-04-12] MEDS ORDERED: PREDNISONE 20 M20 MG PO (12:25)
[2021-04-12] MEDS ORDERED: ZPAK PO (12:25)
[2021-04-12] MEDS ORDERED: TESSALON PERLE100 MG PO (12:25)
[2021-04-12 12:36] VITALS: BP 146/69
--- NOTE | 2021-04-12 15:48 | EKG ---
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: : 1945 Requested By: Emil Ortega Order Number: [id number] MD: Renard Parra Measurements Intervals [place] Rate: 94 P: 78 KS: 233 QRS: -48 QRSD: 97 T: 102 QT: 354 QTc: 443 Interpretive Statements Sinus rhythm Prolonged [place] interval Left anterior fascicular block Anterior infarct, old Nonspecific T abnormalities, lateral leads Compared to ECG 06/12/2019 17:13:36 First degree AV block now present Left anterior fascicular block persists T-wave abnormality now present Prolonged QT interval no longer present Myocardial infarct finding still present Electronically Signed On 04-12-2021 15:48:19 CDT by Renard Parra [email or web address] <ELECTRONICALLY SIGNED> By: Renard Parra MD, [facility] 04/12/21 1548 1110 1110 Renard Parra MD, [facility] /EPI
== END 2021-04-12 12:37 | disposition home or self-care (01) ==
LOC: M.ERS 09:08
PROVIDERS: Physician Assistant
DX: J18.8 Other pneumonia, unspecified organism (principal); Z20.822 Contact with and (suspected) exposure to COVID-19; D64.9 Anemia, unspecified; I11.0 Hypertensive heart disease with heart failure; I50.9 Heart failure, unspecified; E11.9 Type 2 diabetes mellitus without complications; E66.01 Morbid (severe) obesity due to excess calories; Z68.25 Body mass index [BMI] 25.0-25.9, adult; Z79.899 Other long term (current) drug therapy; Z88.5 Allergy status to narcotic agent; Z96.651 Presence of right artificial knee joint

== ENCOUNTER 2021-07-03 07:52 | Inpatient (IN) | payer MEDICARE, OTHER ==
[~2021-07-03] VITALS: Ht 167.6 cm; Wt 70.8 kg
[~2021-07-03 07:52] MED LIST changes: +ASA81BEC PO; +CULTURELLE KID1 EAC1 PO; +ENTRESTO 24 MG1 EACH PO; +LANTUS SUBQ; +LIPITOR 20 MG T20 M1 PO; +MIRTAZAPINE15 M1 PO; +NORVASC5 MG PO; +PREDNISONE 20 M20 MG PO; +PROVENTIL HFA6.7 G1 INH; +PROZAC20 M1 PO; +TESSALON PERLE100 MG PO; +ZPAK PO
[2021-07-03 08:02] VITALS: BP 100/50
[2021-07-03 09:38] LABS: ABSOLUTE EOSINOPHILS 0.1 thou/uL (0.0-0.7); ABSOLUTE LYMPHOCYTES 1.9 thou/uL (0.8-5.3); ABSOLUTE NEUTROPHILS 9.7 thou/uL (1.6-8.1); BASOPHILS 0.2 %; EOSINOPHILS 0.7 %; HEMATOCRIT 21.5 % (37.0-47.0); LYMPHOCYTES 14.7 %; MCH 22.3 pg (26.0-34.0); MCV 74.4 fL (80.0-100.0); MONOCYTES 7.6 %; MPV 7.3 fl. (7.2-11.1); NUCLEATED RBCS 0 /100WBC; PLATELET COUNT* 506 thou/uL (150-400); POLYS 76.8 %; RBC 2.89 mil/uL (4.20-5.00); RDW-CV 19.3 % (10.5-14.5); WBC 12.7 thou/uL (4.0-11.0)
[2021-07-03 09:41] LABS: HEMOGLOBIN 6.5 gm/dL (12.0-15.0)
[2021-07-03 09:49] LABS: CREATININE 1.5 mg/dL (0.6-1.3); POTASSIUM 5.4 mmol/L (3.5-5.1)
[2021-07-03 14:15] VITALS: BP 125/64
--- NOTE | 2021-07-03 14:47 | EKG ---
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: REKHA : 1945 Requested By: Marlo Martinez Order Number: [id number] MD: Renard Parra Measurements Intervals [place] Rate: 88 P: 86 NH: 250 QRS: -47 QRSD: 100 T: 98 QT: 376 QTc: 455 Interpretive Statements Sinus rhythm Prolonged [place] interval Left anterior fascicular block Anterior infarct, old Nonspecific T abnormalities, lateral leads Compared to ECG 04/12/2021 11:10:12 No significant changes Electronically Signed On 07-03-2021 14:47:35 CDT by Renard Parra [email or web address] <ELECTRONICALLY SIGNED> By: Renard Parra MD, FACC 07/03/21 1447 5 5 Renard Parra MD, FACC /EPI
[2021-07-03 15:40] VITALS: BP 125/64
== END 2021-07-03 15:41 | disposition home or self-care (01) | DRG 812 ==
LOC: M.ERS 07:52 → M.TBA-ER 10:14
PROVIDERS: Emergency Medicine Emergency Medical Services; ADMIT Internal Medicine; ATTEND Internal Medicine
DX: D50.9 Iron deficiency anemia, unspecified (principal); I50.30 Unspecified diastolic (congestive) heart failure; N17.9 Acute kidney failure, unspecified; I13.0 Hypertensive heart and chronic kidney disease with heart failure and stage 1 through stage 4 chronic kidney disease, or unspecified chronic kidney disease; N18.30 Chronic kidney disease, stage 3 unspecified; E11.22 Type 2 diabetes mellitus with diabetic chronic kidney disease; E66.01 Morbid (severe) obesity due to excess calories; Z96.651 Presence of right artificial knee joint; G89.29 Other chronic pain; Z20.822 Contact with and (suspected) exposure to COVID-19; M54.9 Dorsalgia, unspecified; Z90.710 Acquired absence of both cervix and uterus; Z98.42 Cataract extraction status, left eye; Z98.41 Cataract extraction status, right eye; Z68.25 Body mass index [BMI] 25.0-25.9, adult; Z88.6 Allergy status to analgesic agent; Z79.82 Long term (current) use of aspirin; Z79.899 Other long term (current) drug therapy